=== PATIENT | female | born 1975 | race Caucasian/White ===

== ENCOUNTER 2018-12-09 09:08 | Emergency (ER) | payer OTHER ==
[~2018-12-09] VITALS: Ht 160 cm; Wt 64.4 kg
[2018-12-09 09:15] VITALS: BP_SYST 105
--- NOTE | 2018-12-09 09:24 | NUR ---
Patient to ER bed 3 to gown for evaluation. Side rails up. Report given to Mata DAMON.
--- NOTE | 2018-12-09 09:25 | NUR ---
Patient is awake, alert, and oriented x4. She states she got a tetanus shot on Saturday at 1030, by 10PM she had swelling and pain that has gotten progressively worse. Patient reports pain 10/10 in right shoulder, she presents with redness to right shoulder.
--- NOTE | 2018-12-09 09:45 | NUR ---
ER Dr. Lawrence at bedside examining patient.
[2018-12-09] MEDS ORDERED: DEXAMETHASONE SOD PHOSPHATE 10 MG/ML VIAL IM ONE (10:00)
[2018-12-09] MEDS ORDERED: fentaNYL CITRATE/PF 100 MCG/2 ML AMP IM ONE (10:00)
[2018-12-09] MEDS ORDERED: cefTRIAXone 1 GM in LIDOCAINE 1%, 20 ML MDV 2.1 ML IM ONE (10:00)
[2018-12-09] MEDS ORDERED: cefTRIAXone 1 GM VIAL ONE (10:15)
[2018-12-09] MEDS ORDERED: DEXAMETHASONE SOD PHOSPHATE 10 MG/ML VIAL ONE (10:16)
[2018-12-09 10:43] VITALS: BP_SYST 111
--- NOTE | 2018-12-09 10:43 | NUR ---
Patient given written and verbal discharge instructions and verbalizes understanding. ER MD discussed with patient the results and treatment provided. Patient in stable condition. ID arm band removed. Rx of prednisone, norco, keflex, zyrtec given. Patient educated on pain management and to follow up with PMD. Pain Scale 9/10, Dr. Lawrence is aware. Opportunity for questions provided and answered. Medication side effect fact sheet provided.
== END 2018-12-09 10:43 | disposition home or self-care (01) ==
LOC: SED 09:08
DX: L03.113 Cellulitis of right upper limb (principal); I10 Essential (primary) hypertension; T50.A95A Adverse effect of other bacterial vaccines, initial encounter; Z88.2 Allergy status to sulfonamides; Y92.89 Other specified places as the place of occurrence of the external cause
CPT/HCPCS: 96372; 99283; J0696; J1100; J2001; J3010